=== PATIENT | male | born 1980 | race Caucasian/White ===

== ENCOUNTER 2019-02-17 01:46 | Emergency (ER) | payer SELFPAY ==
[2019-02-17] MEDS ORDERED: Penicillin V Potassium 500 MG Tab PO ONE (02:30)
--- NOTE | 2019-02-17 02:36 | EDM.PDOC ---
ED HPI GENERAL MEDICAL PROBLEM - General Chief Complaint: ENT Problem Stated Complaint: TOOTHACHE Time Seen by Provider: 02/17/19 02:03 Source of Information: Reports: Patient, RN Notes Reviewed History Limitations: Reports: No Limitations - History of Present Illness INITIAL COMMENTS - FREE TEXT/NARRATIVE: The patient states that he broke a lower left tooth about 2 weeks ago, but did not have toothache until last night. He states that his left jaw started to swell around 23:00 this evening. No recent fever. No recent oral drainage. The patient states that he has been taking ibuprofen and Tylenol for his discomfort. The patient states that the last time he went to a dentist was around 3 years ago. The patient does not have a PCP. Left Lower Jaw Pain Score (Numeric/FACES): 10 - Related Data Allergies Allergy/AdvReac Type Severity Reaction Status Date / Time No Known Allergies Allergy Verified 02/17/19 02:00 Home Meds: Home Meds Penicillin V Potassium 1 tab PO Q6HR #40 tab 02/17/19 [Rx] Past Medical History Cardiovascular History: Reports: Hypertension (untreated) Psychiatric History: Reports: Anxiety (untreated), Depression (untreated), PTSD (untreated) Endocrine/Metabolic History: Reports: Obesity/BMI 30+ - Past Surgical History GI Surgical History: Reports: Cholecystectomy (2016) Social & Family History - Tobacco Use Smoking Status *Q: Light Tobacco Smoker Tobacco Use Within Last Twelve Months: Smokeless Tobacco (Chews on occasion) Years of Tobacco use: 28 Packs/Tins Daily: 0.2 - Caffeine Use Caffeine Use: Reports: None - Alcohol Use Alcohol Use History: Yes Alcohol Use Frequency: Socially (to excess on occasion) - Recreational Drug Use Recreational Drug Use: Yes Drug Use in Last 12 Months: No Recreational Drug Type: Reports: Marijuana/Hashish - Living Situation & Occupation Living situation: Reports: , with Family (kids) Occupation: Employed ([employer]) ED ROS ENT - Review of Systems Review Of Systems: ROS reveals no pertinent complaints other than HPI. ED EXAM, ENT - Physical Exam Exam: See Below Exam Limited By: No Limitations General Appearance: Alert, WD/WN, No Apparent Distress Eye Exam: Bilateral Eye: EOMI, Normal Inspection Ears: Normal External Exam, Normal Canal, Hearing Grossly Normal, Normal TMs Nose: Normal Inspection, Normal Mucousa, No Blood Mouth/Throat: Normal Inspection, Normal Lips, Normal Oropharynx, Other (Tooth # 18 with posterior decay and lateral gingival swelling. The remaining teeth appear to be healthy.) Head: Atraumatic, Normocephalic. No: Facial Swelling Neck: Normal Inspection, Supple, Non-Tender, Full Range of Motion. No: Lymphadenopathy (L), Lymphadenopathy (R) Course - Vital Signs Last Recorded V/S: Last Vital Signs Temp 37.4 C 02/17/19 01:57 Pulse 109 H 02/17/19 01:57 Resp 20 02/17/19 01:57 BP 173/112 H 02/17/19 01:57 Pulse Ox 99 02/17/19 01:57 - Orders/Labs/Meds Meds: Medications Discontinued Medications Generic Name Dose Route Start Last Admin Trade Name Boone PRN Reason Stop Dose Admin Penicillin V Potassium 500 mg 02/17/19 02:30 02/17/19 02:36 Veetids PO 02/17/19 02:31 500 mg ONETIME ONE Administration - Re-Assessments/Exams Free Text/Narrative Re-Assessment/Exam: 02/17/19 02:30 The patient appears to have an infection of tooth #18. He will be started on oral penicillin, and I will prescribe a 10-day course. We will give him a list of local dentists. He should take [id number] ibuprofen or naproxen as needed for discomfort. Departure - Departure Time of Disposition: 02:31 Disposition: Home, Self-Care 01 Condition: Good Clinical Impression: Dental infection - Discharge Information *PRESCRIPTION DRUG MONITORING PROGRAM REVIEWED*: Not Applicable *COPY OF PRESCRIPTION DRUG MONITORING REPORT IN PATIENT RG: Not Applicable Prescriptions: Penicillin V Potassium 1 tab PO Q6HR #40 tab Instructions: Dental Abscess, [id number] Referrals: PCP,None [Primary Care Provider] - Forms: ED Department Discharge Additional Instructions: You were seen in the emergency room for a lower left toothache. On examination, you appear to have an infection of tooth #18. You have been started on the antibiotic penicillin. A prescription for penicillin has been sent to the clinic pharmacy, located in the [facility] across the [address] from the hospital. Take one tablet of penicillin every 6 hours, as prescribed. Finish the entire prescription unless told otherwise by a dentist. Take [id number] ibuprofen, 3-4 tablets (600-800 mg), with food, OR over- the-counter naproxen, one tablet every 12 hours, with food, as needed for discomfort. A list of local dentists has been provided to you. It is imperative that you follow-up with a dentist within the next 10 days. If any other problems, please do not hesitate to return to the ER.
== END 2019-02-17 02:41 | disposition home or self-care (01) ==
LOC: JD.ED 01:46
DX: K04.7 Periapical abscess without sinus (principal)
CPT/HCPCS: 99282; A9270; 99283

== ENCOUNTER 2020-05-24 16:43 | Emergency (ER) | payer SELFPAY ==
--- NOTE | 2020-05-24 17:29 | EDM.PDOC ---
ED HPI GENERAL MEDICAL PROBLEM - General Chief Complaint: General Stated Complaint: RX TO BLOOD PRESSURE MEDS Time Seen by Provider: 05/24/20 17:28 - History of Present Illness INITIAL COMMENTS - FREE TEXT/NARRATIVE: 39-year-old male presents the emergency room after having a episode of lightheadedness and diaphoresis. Patient had an episode of where he felt lightheaded and he was sweaty all over. This lasted about 10 to 15 minutes occurred shortly before his arrival here to the emergency department. From talking with the patient he is staying fairly active he is not drinking enough water however someone told him to drink more water because the medication is taken does take the water out of his system. He drank a large bottle water before coming in and he feels pretty good right now. This episode was not associated with any breathing difficulty shortness of breath or chest pain. The patient states his only medical problems have been anxiety and hypertension. And his anxiety has been a little on the high side. - Related Data Allergies Allergy/AdvReac Type Severity Reaction Status Date / Time No Known Allergies Allergy Verified 02/17/19 02:00 Home Meds: Home Meds amLODIPine [Norvasc] 5 mg PO DAILY #30 tab 05/24/20 [Rx] hydroCHLOROthiazide [Hydrochlorothiazide] 25 mg PO DAILY 05/24/20 [History] Past Medical History Cardiovascular History: Reports: Hypertension Psychiatric History: Reports: Anxiety, Depression, PTSD Endocrine/Metabolic History: Reports: Obesity/BMI 30+ - Past Surgical History HEENT Surgical History: Reports: Oral Surgery GI Surgical History: Reports: Cholecystectomy Social & Family History - Family History Family Medical History: Noncontributory - Tobacco Use Smoking Status *Q: Current Every Day Smoker Years of Tobacco use: 20 Packs/Tins Daily: 0.5 - Caffeine Use Caffeine Use: Reports: Coffee, Soda - Living Situation & Occupation Living situation: Reports: , with Family (kids) Occupation: Employed ([employer]) ED ROS GENERAL - Review of Systems Review Of Systems: See Below Constitutional: Reports: Diaphoresis. Denies: No Symptoms HEENT: Reports: No Symptoms Respiratory: Reports: No Symptoms Cardiovascular: Reports: No Symptoms Endocrine: Reports: No Symptoms GI/Abdominal: Reports: No Symptoms : Reports: No Symptoms Musculoskeletal: Reports: No Symptoms Neurological: Reports: No Symptoms ED EXAM, GENERAL - Physical Exam Exam: See Below Exam Limited By: No Limitations General Appearance: Alert, No Apparent Distress, Obese, Other (Patient states he is normal the time of my exam) Head: Atraumatic, Normocephalic Neck: Normal Inspection. No: Lymphadenopathy (L), Lymphadenopathy (R) Respiratory/Chest: No Respiratory Distress, Lungs Clear, Normal Breath Sounds Cardiovascular: Regular Rate, Rhythm, No Edema, No Murmur GI/Abdominal: Normal Bowel Sounds, Soft, Non-Tender Back Exam: Normal Inspection. No: CVA Tenderness (L), CVA Tenderness (R) Extremities: Normal Inspection, No Pedal Edema Neurological: Alert, Oriented, Normal Cognition Psychiatric: Normal Affect, Normal Mood. No: Anxious Course - Vital Signs Last Recorded V/S: Last Vital Signs Temp 36.1 C 05/24/20 17:04 Pulse 113 H 05/24/20 17:04 Resp 13 05/24/20 17:04 BP 173/138 H 05/24/20 17:04 Pulse Ox 99 05/24/20 17:04 - Orders/Labs/Meds Orders: Active Orders 24 hr Category Date Time Status EKG Documentation Completion [RC] STAT Care 05/24/20 17:58 Active Labs: Laboratory Tests 05/24/20 05/24/20 Range/Units 18:10 18:10 WBC 16.26 H (4.23-9.07) K/mm3 RBC 5.74 (4.63-6.08) M/mm3 Hgb 17.0 (13.7-17.5) gm/dl Hct 50.5 (40.1-51.0) % MCV 88.0 (79.0-92.2) fl MCH 29.6 (25.7-32.2) pg MCHC 33.7 (32.2-35.5) g/dl RDW Std Deviation 43.9 (35.1-43.9) fL Plt Count 301 (163-337) K/mm3 MPV 9.6 (9.4-12.3) fl Neut % (Auto) 70.2 H (34.0-67.9) % Lymph % (Auto) 18.8 L (21.8-53.1) % Mer[place]ether % (Auto) 7.7 (5.3-12.2) % Eos % (Auto) 1.3 (0.8-7.0) Baso % (Auto) 1.5 H (0.1-1.2) % Neut # (Auto) 11.41 H (1.78-5.38) K/mm3 Lymph # (Auto) 3.06 (1.32-3.57) K/mm3 Meriwether # (Auto) 1.25 H (0.30-0.82) K/mm3 Eos # (Auto) 0.21 (0.04-0.54) K/mm3 Baso # (Auto) 0.25 H (0.01-0.08) K/mm3 Manual Slide Review Not Reportable Sodium 132 L (136-145) mEq/L Potassium 4.7 (3.5-5.1) mEq/L Chloride 95 L (98-107) mEq/L Carbon Dioxide 26 (21-32) mEq/L Anion Gap 15.7 H (5-15) BUN 10 (7-18) mg/dL Creatinine 1.2 (0.7-1.3) mg/dL Est Cr Clr Drug Dosing 100.46 mL/min Estimated GFR (MDRD) > 60 (>60) mL/min BUN/Creatinine Ratio 8.3 L (14-18) Glucose 349 H (74-106) mg/dL Calcium 9.1 (8.5-10.1) mg/dL Magnesium 1.6 L (1.8-2.4) mg/dl Total Bilirubin 0.4 (0.2-1.0) mg/dL AST 34 (15-37) U/L ALT 58 (16-63) U/L Alkaline Phosphatase 110 (46-116) U/L Troponin I < 0.017 (0.00-0.056) ng/mL Total Protein 8.4 H (6.4-8.2) g/dl Albumin 3.6 (3.4-5.0) g/dl Globulin 4.8 gm/dL Albumin/Globulin Ratio 0.8 L (1-2) - Re-Assessments/Exams Free Text/Narrative Re-Assessment/Exam: 05/24/20 19:22 The patient is minimally dehydrated more concerning his blood sugars 349. This is been going on for a while. We will check a hemoglobin A1c. Patient does not want to stay in the hospital to further straighten things out. We will have him stop his hydrochlorothiazide start him on amlodipine 5 mg daily. He is urged to follow-up with a regular provider as soon as possible. He will start magnesium oxide 400 mg 2 tablets daily for 7 days then 1 daily thereafter. Departure - Departure Time of Disposition: 19:23 Disposition: Home, Self-Care 01 Clinical Impression: Elevated blood sugar, Hypertension - Discharge Information Referrals: PCP,None [Primary Care Provider] - Forms: ED Department Discharge Additional Instructions: Return to the emergency room with any questions problems or worsening symptoms. It is absolutely essential you establish and follow-up with a regular healthcare provider as soon as possible. Your blood pressure is poorly controlled you look like you have type 2 diabetes. These need immediate attention. I ordered a lab called a hemoglobin A1c inform the healthcare provider that this was done through the emergency room. Stop the hydrochlorothiazide I am starting you on amlodipine, another blood pressure medication 5 mg once daily. Sepsis Event Note (ED) - Evaluation Sepsis Screening Result: No Definite Risk - Focused Exam Vital Signs: Vital Signs Temp Pulse Resp BP Pulse Ox 05/24/20 17:04 36.1 C 113 H 13 173/138 H 99 - My Orders Last 24 Hours: My Active Orders 05/24/20 17:58 EKG Documentation Completion [RC] STAT - Assessment/Plan Last 24 Hours: My Active Orders 05/24/20 17:58 EKG Documentation Completion [RC] STAT
[2020-05-24 20:13] LABS: HEMOGLOBIN A1C 11.6 % (4.50-6.20)
== END 2020-05-24 19:41 | disposition home or self-care (01) ==
LOC: JD.ED 16:43
DX: R73.9 Hyperglycemia, unspecified (principal); I10 Essential (primary) hypertension; F17.210 Nicotine dependence, cigarettes, uncomplicated; E66.9 Obesity, unspecified; Z79.899 Other long term (current) drug therapy; Z68.41 Body mass index [BMI] 40.0-44.9, adult
CPT/HCPCS: 36415; 80053; 83036; 83735; 84484; 85025; 93005; 93010; 99283; 99284-25

== ENCOUNTER 2022-01-02 08:22 | Emergency (ER) | payer BC ==
[2022-01-02] MEDS ORDERED: Morphine 4 MG/ML Syringe IVPUSH ONE (09:08)
[2022-01-02] MEDS ORDERED: Ondansetron 4 MG/2 ML SDV IVPUSH ONE (10:02)
[2022-01-02] MEDS ORDERED: Heparin Sodium 5,000 Units/ML Vial IVPUSH ONE (12:37)
[2022-01-02] MEDS ORDERED: Heparin Sodium/D5W 25,000 UNITS/500 ML BAG IV SCH (12:45)
[2022-01-02] MEDS ORDERED: atorvaSTATin 40 MG Tab PO ONE (12:47)
[2022-01-02] MEDS ORDERED: Metoprolol Tartrate 25 MG Tab PO ONE (12:57)
== END 2022-01-02 14:20 ==
LOC: JD.ED 08:22
DX: I24.9 Acute ischemic heart disease, unspecified (principal); I21.4 Non-ST elevation (NSTEMI) myocardial infarction; I10 Essential (primary) hypertension; E66.9 Obesity, unspecified; Z68.41 Body mass index [BMI] 40.0-44.9, adult; Z20.822 Contact with and (suspected) exposure to COVID-19
CPT/HCPCS: 36415; 71045; 71045-26; 80053; 84484; 85025; 85379; 85610; 93005; 93010; 96365; 96375; 99285; 99285-25; A9270-GY; J1644; J2270; J2405; U0002

== ENCOUNTER 2022-02-25 16:06 | Emergency (ER) | payer BC ==
[2022-02-25] MEDS ORDERED: LORazepam 2 MG/ML SDV IM ONE ×2 (16:48→18:15)
== END 2022-02-25 19:35 | disposition home or self-care (01) ==
LOC: JD.ED 16:06
DX: F41.9 Anxiety disorder, unspecified (principal); I25.2 Old myocardial infarction; I10 Essential (primary) hypertension; F17.210 Nicotine dependence, cigarettes, uncomplicated; E66.9 Obesity, unspecified; Z68.30 Body mass index [BMI] 30.0-30.9, adult; Z90.49 Acquired absence of other specified parts of digestive tract; Z79.899 Other long term (current) drug therapy; Z79.82 Long term (current) use of aspirin
CPT/HCPCS: 96372; 99283; J2060

== ENCOUNTER 2022-05-22 22:08 | Observation (INO) | payer BC, OTHER ==
[2022-05-22 23:18] LABS: ESTIMATED GFR 70 mL/min (>60)
[2022-05-22 23:20] LABS: ACETAMINOPHEN 0 ug/mL (10-30)
[2022-05-23] MEDS ORDERED: Naloxone 0.4 MG/ML SDV IVPUSH ONE (10:47)
[2022-05-23] MEDS ORDERED: Naloxone 0.4 MG/ML SDV ONE (10:48)
[2022-05-23] MEDS ORDERED: Sodium Chloride 0.9% 1,000 ML IV ONE (11:12)
[2022-05-23] MEDS ORDERED: Flumazenil 0.1 MG/ML 5 ML MDV IVPUSH ONE (11:46)
[2022-05-23] MEDS ORDERED: Ondansetron 4 MG/2 ML SDV IV PRN (13:56)
[2022-05-23] MEDS ORDERED: LORazepam 2 MG/ML SDV IVPUSH PRN (13:59)
[2022-05-23] MEDS ORDERED: Insulin Lispro 100 Unit/ML 3 ML KwikPen SUBCUT SCH (14:00)
[2022-05-23] MEDS: Dextrose 5%-0.45% NaCl 1,000 ML IV SCH ×2 (15:25→22:50)
[2022-05-23] MEDS: Insulin Lispro 100 Unit/ML 3 ML KwikPen SUBCUT SCH (18:20)
[2022-05-23] MEDS: LORazepam 2 MG/ML SDV IVPUSH PRN (23:00)
[2022-05-24] MEDS: Insulin Lispro 100 Unit/ML 3 ML KwikPen SUBCUT SCH ×5 (00:16→21:58)
[2022-05-24] MEDS: LORazepam 2 MG/ML SDV IVPUSH PRN (00:17)
[2022-05-24] MEDS: Dextrose 5%-0.45% NaCl 1,000 ML IV SCH (06:25)
[2022-05-24] MEDS: Enoxaparin 40 MG/0.4 ML Syringe SUBCUT SCH (08:25)
[2022-05-25] MEDS: Insulin Lispro 100 Unit/ML 3 ML KwikPen SUBCUT SCH ×2 (06:41→11:17)
[2022-05-25] MEDS: Enoxaparin 40 MG/0.4 ML Syringe SUBCUT SCH (08:55)
== END 2022-05-25 12:35 | disposition home or self-care (01) ==
LOC: JD.ED 22:08 → JD.MS 05-23 13:55
PROVIDERS: ADMIT Internal Medicine; ATTEND Internal Medicine
DX: R41.82 Altered mental status, unspecified (principal); T43.59 Poisoning by, adverse effect of and underdosing of other antipsychotics and neuroleptics; T43.211 Poisoning by selective serotonin and norepinephrine reuptake inhibitors, accidental (unintentional); T50.901D Poisoning by unspecified drugs, medicaments and biological substances, accidental (unintentional), subsequent encounter; I10 Essential (primary) hypertension; E11.69 Type 2 diabetes mellitus with other specified complication; F41.9 Anxiety disorder, unspecified; F32.A Depression, unspecified; F43.10 Post-traumatic stress disorder, unspecified; I25.2 Old myocardial infarction; E66.09 Other obesity due to excess calories; Z68.37 Body mass index [BMI] 37.0-37.9, adult; Z79.82 Long term (current) use of aspirin; Z79.899 Other long term (current) drug therapy; Z79.84 Long term (current) use of oral hypoglycemic drugs; Z86.16 Personal history of COVID-19; Z90.49 Acquired absence of other specified parts of digestive tract; Z98.890 Other specified postprocedural states; Z20.822 Contact with and (suspected) exposure to COVID-19; Z79.4 Long term (current) use of insulin; Z79.83 Long term (current) use of bisphosphonates
CPT/HCPCS: 36415; 70450; 80048; 80053; 80143; 80179; 80306; 80307; 81001; 82947; 83735; 84443; 85025; 87635; 93005; 94762; J1650; J1815; J2060; J2310; J3490; J7030; J7042; 93010; 96361; 96372; 96374; 96375; 96376; 99285; 99285-25; G0378; U0002